=== PATIENT | female | born 1990 | race Caucasian/White ===

== ENCOUNTER 2016-04-09 15:40 | Emergency (ER) | payer MEDICAID ==
[2016-04-09] MEDS ORDERED: KETOROLAC 60 MG/2 ML VIAL IM ONE (18:11)
== END 2016-04-09 18:46 | disposition home or self-care (01) ==
LOC: ER 15:40
DX: S39.012A Strain of muscle, fascia and tendon of lower back, initial encounter (principal); M54.16 Radiculopathy, lumbar region; M25.552 Pain in left hip
CPT/HCPCS: 72100; 81003; 81025; 96372